=== PATIENT | male | born 1940 | race Caucasian/White ===

== ENCOUNTER → 2018-03-13 | Outpatient (CLI) | payer MEDICARE ==
[~2018-03-13] MED LIST: ASPI325 PO; COMBIVENT RESPIM4 GM INH; Calcitrate + D1 TAB PO; DUTA.5; DUTA.5 PO; FISH OIL 1,0001 EAC1 PO; Fish Oil500 M1 PO; Flonase 0.05% N16 GM; GLUC500; GLUCOSAMINE-CH1 EAC3 PO; HYDACE5 PO; IBUP600 PO; PROM25 PO; Vitamin D2000 UNIT PO; [UNRECOGNIZED DRUG - OTHER] PO
== END | disposition home or self-care (01) ==
LOC: LAB SHORT 10:23 → PLD 10:23
DX: L81.4 Other melanin hyperpigmentation (principal)
CPT/HCPCS: 88305

== ENCOUNTER 2020-10-20 11:11 | Day surgery (SDC) | payer OTHER ==
[~2020-10-20] VITALS: Ht 180.3 cm; Wt 75.0 kg
[~2020-10-20 11:11] MED LIST changes: +FINA5 PO; +OMEGA-3 FISH O1 EAC6; +TURMERIC500 M2 PO
== END 2020-10-20 14:10 | disposition home or self-care (01) ==
LOC: ORSCSDS 11:11
PROVIDERS: Internal Medicine Gastroenterology
PROC: 0DB58ZX Excision of Esophagus, Via Natural or Artificial Opening Endoscopic, Diagnostic (ICD-10-PCS; principal; 2020-10-20 12:45)
PROC: 0D757ZZ Dilation of Esophagus, Via Natural or Artificial Opening (ICD-10-PCS; principal; 2020-10-20 12:45)
PROC: 0DBL8ZX Excision of Transverse Colon, Via Natural or Artificial Opening Endoscopic, Diagnostic (ICD-10-PCS; principal; 2020-10-20 12:45)
DX: K21.9 Gastro-esophageal reflux disease without esophagitis (principal); R13.10 Dysphagia, unspecified; Z12.11 Encounter for screening for malignant neoplasm of colon; Z86.010 Personal history of colon polyps; D12.3 Benign neoplasm of transverse colon; K57.30 Diverticulosis of large intestine without perforation or abscess without bleeding; K64.8 Other hemorrhoids; G47.33 Obstructive sleep apnea (adult) (pediatric); G20 Parkinson's disease; Z79.899 Other long term (current) drug therapy
CPT/HCPCS: 88305; J2704; J7120

== ENCOUNTER → 2021-05-07 | Outpatient (CLI) | payer OTHER | END | disposition home or self-care (01) | LOC: LAB 08:27 → LAB SHORT 08:27 | DX: L72.0 Epidermal cyst (principal) | CPT/HCPCS: 88304 ==